=== PATIENT | female | born 1945 | race Caucasian/White ===

== ENCOUNTER → 2020-02-07 | Outpatient (CLI) | payer MEDICARE ==
[~2020-02-07] MED LIST: ACCUPRIL40 MG PO; ATIVAN1 MG; CALCIUM + D SO1 EACH PO; CELEXA40 MG PO; ESTRACE0.5 MG PO; NORVASC 5 MG TAB5 MG PO; PEPCID40 MG PO; PREDNISONE50 MG PO; PREMARIN0.45 MG PO; PROVERA2.5 MG PO; WELCHOL 625 MG625 M1 PO; ZYRTEC 10 MG TA10 M1 PO
== END ==
LOC: M.RAD 10:53
PROVIDERS: ATTEND Nurse Practitioner Family
DX: Z12.31 Encounter for screening mammogram for malignant neoplasm of breast (principal)

== ENCOUNTER → 2020-03-13 | Outpatient (CLI) | payer MEDICARE | LOC: M.RAD 13:30 | PROVIDERS: ATTEND Nurse Practitioner Family | DX: Z13.820 Encounter for screening for osteoporosis (principal); M81.0 Age-related osteoporosis without current pathological fracture ==